=== PATIENT | male | born 1980 | race Caucasian/White ===

== ENCOUNTER 2021-06-24 22:18 | Emergency (ER) | payer BC, MEDICARE ==
[~2021-06-24] VITALS: Ht 167.6 cm; Wt 115.7 kg
[~2021-06-24 22:18] MED LIST: GABA600T7 PO; HYDR-2155 PO; HYDR-2680 PO; HYDR-3136 PO; IBUP-1673 PO; ONDA4TAB10 SL; PANT40TA6 PO; PENI500T PO; SUCR1ORA5 PO
--- NOTE | 2021-06-24 22:24 | PHYS DOC ---
Past History Past Medical History: GERD, Other Past Surgical History: No Surgical History Smoking: Cigarettes, Less than 1pk/day Alcohol Use: None Drug Use: None General Adult HPI: HPI: ".. I got a spider bite... or some asha abscess on my back.. ".. " it been there a few days now... ".." I not really sure when it started..." Patient is a 40 year old male who presents with above hx and complaints insect bite back of neck. Patient has area approximately 12 cm x 16 cm mid back. Does have an area that is starting to drain pus. Patient does not remember having any injury. No history immunosuppression. Patient estimates approximately 10 years since his last tetanus. No history of travel. Patient does smoke cigaret steve. Pt. follow s with Jose Carlos Wen. Review of Systems: Review of Systems: Constitutional: Denies fever or chills Eyes: Denies change in visual acuity HENT: Denies nasal congestion or sore throat Respiratory: Denies cough or shortness of breath Cardiovascular: Denies chest pain or edema GI: Denies abdominal pain, nausea, vomiting, bloody stools or diarrhea : Denies dysuria Musculoskeletal: Denies back pain or joint pain Integument: Denies rash. Complains of cellulitis abscess mid back. Neurologic: Denies headache, focal weakness or sensory changes Endocrine: Denies polyuria or polydipsia Lymphatic: Denies swollen glands Psychiatric: Denies depression or anxiety Family History: Family History: Noncontributory to presentation Current Medications: Current Meds: See nursing for home meds Allergies: Allergies: Allergies Coded Allergies Type Severity Reaction Last Updated Verified No Known Drug Allergies 04/23/13 No Physical Exam: PE: Constitutional: Moderate acute distress, non-toxic appearance. [] HENT: Normocephalic, atraumatic, bilateral external ears normal, oropharynx moist, no oral exudates, nose normal. [] Eyes: PERRLA, EOMI, conjunctiva normal, no discharge. [] Neck: Normal range of motion, no tenderness, supple, no stridor. [] Cardiovascular:Heart rate regular rhythm, no murmur [] Lungs & Thorax: Bilateral breath sounds clear to auscultation [] Abdomen: Bowel sounds normal, soft, no tenderness, no masses, no pulsatile masses. [] Obese. Skin: Warm, dry, no erythema, no rash. [] Back: No tenderness, no CVA tenderness. Has an area of cellulitis and pointing abscess as per HPI Extremities: No tenderness, no cyanosis, no clubbing, ROM intact, no edema. [] Neurologic: Alert and oriented X 3, normal motor function, normal sensory function, no focal deficits noted. [] Psychologic: Affect normal, judgement normal, mood normal. [] EKG: EKG: [] Radiology/Procedures: Radiology/Procedures: [] Heart Score: C/O Chest Pain: N/A Risk Factors: Risk Factors: DM, Current or recent (<one month) smoker, HTN, HLP, family history of CAD, obesity. Risk Scores: Score 0 - 3: 2.5% MACE over next 6 weeks - Discharge Home Score 4 - 6: 20.3% MACE over next 6 weeks - Admit for Clinical Observation Score 7 - 10: 72.7% MACE over next 6 weeks - Early Invasive Strategies Course & Med Decision Making: Course & Med Decision Making Pertinent Labs and Imaging studies reviewed. (See chart for details) Procedure note-incision and drainage-. Patient's risk and benefits discussed with drainage. Patient's-cellulitis and abscess area cleaned with Betadine-1 stick with a 15 blade-resulted in drainage of copious amount of pus. Area packed with iodoform gauze. Patient remove gauze in 3 days. Patient take Bactrim DS twice a day. Patient use moist compresses with salt water and Epson salts. Patient apply Polysporin to the abscess site 4 times a day. Follow-up primary care. Return if any concerns. Patient's tetanus was updated. Impression: 1. Abscess 2. Cellulitis [] Dragon Disclaimer: Dragon Disclaimer: This electronic medical record was generated, in whole or in part, using a voice recognition dictation system. Departure Departure: Referrals: JASMINE KOHLI MD (PCP) Scripts Sulfamethoxazole/Trimethoprim (BACTRIM DS TABLET) 1 Each Tablet 1 TAB PO BID for abscess for 10 Days, #20 TAB 0 Refills Prov: MELANIE MOORE MD 06/24/21 Félix Disclaimer This chart was dictated in whole or in part using Voice Recognition software in a busy, high-work load, and often noisy Emergency Department environment. It may contain unintended and wholly unrecognized errors or omissions. MELANIE MOORE MD Jun 24, 2021 22:24
[2021-06-24 22:28] VITALS: BP 173/104
[2021-06-24] MEDS ORDERED: cefTRIAXone IM 1 GM VIAL IM ONE (23:15)
[2021-06-24] MEDS ORDERED: DIPHTH,PERTUSS(ACELL),TET TOX 0.5 ML DISP.SYRIN. VAX IM ONE (23:15)
[2021-06-24] MEDS ORDERED: SMZ/TMP 800/160MG TABLET. PO ONE (23:15)
[2021-06-24] MEDS ORDERED: SULF1TAB24 PO (23:19)
== END 2021-06-24 23:53 | disposition home or self-care (01) ==
LOC: ER 22:18
DX: L02.212 Cutaneous abscess of back [any part, except buttock and flank] (principal); L03.312 Cellulitis of back [any part except buttock and flank]; K21.9 Gastro-esophageal reflux disease without esophagitis; F17.210 Nicotine dependence, cigarettes, uncomplicated
CPT/HCPCS: 90471; 90715; 96372; 99284; J0696